=== PATIENT | female | born 1990 | race African-American/Black ===

== ENCOUNTER 2017-05-04 11:34 | Inpatient (IN) | payer MEDICAID, OTHER ==
[~2017-05-04] VITALS: Ht 167.6 cm; Wt 120.2 kg
[~2017-05-04 11:34] MED LIST: ALBUTEROL; CARVEDILOL PO; D-ME473S8; LASIX PO; LISINOPRIL PO; MAGNESIUM OXIDE PO; POTASSIUM CHLORIDE PO
[2017-05-04] MEDS ORDERED: MAGNESIUM/ALUMINUM HYDROXIDE/SIMETHICONE 30ML UDC PO STA (15:44)
[2017-05-04] MEDS ORDERED: FAMOTIDINE 20MG/2ML VIAL IV STA (15:44)
[2017-05-04] MEDS ORDERED: SODIUM CHLORIDE 0.9% 1,000 ML IV ONE (15:44)
[2017-05-04] MEDS ORDERED: ONDANSETRON HCL 4MG/2ML VIAL IV STA (15:44)
[2017-05-04] MEDS ORDERED: MORPHINE SULFATE 4 MG/ML CPJ (NOT FOR IM USE) IV STA (15:44)
[2017-05-04 16:07] LABS: CLARITY URINE CLEAR (CLEAR); COLOR URINE DARK YELLOW (YELLOW); GLUCOSE URINE NEGATIVE (NEGATIVE); KETONES URINE TRACE (NEGATIVE); LEUKOCYTE ESTERASE URINE TRACE (NEGATIVE); NITRITE URINE NEGATIVE (NEGATIVE); OCCULT BLOOD URINE NEGATIVE (NEGATIVE); PROTEIN URINE 1+ (NEGATIVE); SPECIFIC GRAVITY URINE 1.029 (1.005-1.030)
[2017-05-04 16:09] LABS: BASOPHILS % 0.3 % (0.0-2.0); HEMATOCRIT. 40.5 % (36.0-48.0); HEMOGLOBIN. 13.4 g/dL (12.0-16.0); LYMPHOCYTES % 7.5 % (20.0-50.0); MEAN CORPUSCULAR HEMOGLOBIN 29.3 pg (28.0-32.0); MEAN CORPUSCULAR VOLUME 88.3 fL (81.0-99.0); MEAN PLATELET VOLUME 8.1 fl (7.4-10.4); MONOCYTES % 4.7 % (2.0-8.0); NEUTROPHILS % 87.5 % (40.0-76.0); PLATELET 261 x1000/uL (130-400); RED BLOOD CELL COUNT 4.58 mill/uL (4.2-5.4)
[2017-05-04 16:10] LABS: CHLORIDE 103 mEq/L (98-107)
[2017-05-04 16:11] LABS: INR 1.1
[2017-05-04 16:16] LABS: CARBON DIOXIDE 27 mEq/L (21-32)
[2017-05-04] MEDS ORDERED: PIPERACILLIN/TAZ 3.375G PREMIX 50 ML IV ONE (17:00)
[2017-05-04] MEDS ORDERED: SODIUM CHLORIDE 0.9% 1,000 ML IV SCH (17:24)
[2017-05-04 17:26] LABS: CREATINE KINASE 82 IU/L (26-192); TROPONIN I < 0.02 ng/mL (0.00-0.04)
[2017-05-04 17:27] LABS: CREATINE KINASE MB FRACTION < 0.5 ng/mL (0.5-3.6)
[2017-05-04] MEDS ORDERED: IPRATROPIUM/ALBUTEROL 0.5-3(2.5)MG/3ML NEB INH PRN (17:30)
[2017-05-04] MEDS ORDERED: ONDANSETRON HCL 4MG/2ML VIAL IV PRN (17:30)
[2017-05-04 21:00] VITALS: BP 105/62
[2017-05-05] VITALS: BP 98/49
[2017-05-05] MEDS: SODIUM CHLORIDE 0.9% 1,000 ML IV SCH ×2 (01:53→23:38)
[2017-05-05] MEDS: PIPERACILLIN/TAZ 3.375G PREMIX 50 ML IV SCH ×5 (01:53→23:38)
[2017-05-05 04:00] VITALS: BP 105/56
[2017-05-05 06:58] LABS: BASOPHILS % 0.4 % (0.0-2.0); EOSINOPHILS % 0.1 % (0.0-5.0); HEMATOCRIT. 36.9 % (36.0-48.0); HEMOGLOBIN. 12.4 g/dL (12.0-16.0); LYMPHOCYTES % 26.3 % (20.0-50.0); MEAN CORPUSCULAR HEMOGLOBIN 29.5 pg (28.0-32.0); MEAN PLATELET VOLUME 8.7 fl (7.4-10.4); MONOCYTES % 8.9 % (2.0-8.0); NEUTROPHILS % 64.3 % (40.0-76.0); PLATELET 236 x1000/uL (130-400); RED BLOOD CELL COUNT 4.19 mill/uL (4.2-5.4); RED CELL DISTRIBUTION WIDTH 15.2 % (11.6-14.6)
[2017-05-05 07:49] LABS: CARBON DIOXIDE 26 mEq/L (21-32); CHLORIDE 106 mEq/L (98-107); HDL CHOLESTEROL 45 mg/dL (40-59); LDL CHOLESTEROL 86 mg/dL (5-100)
[2017-05-05 07:53] VITALS: BP 105/53
[2017-05-05] MEDS ORDERED: POTASSIUM CHLORIDE INJ 40 MEQ in DEXT 5% WATER 250 ML IV SCH (11:00)
[2017-05-05 11:45] VITALS: BP 103/62
[2017-05-05 11:53] LABS: *AMPHETAMINES SCREEN URINE NEGATIVE (NEGATIVE); *BARBITURATES SCREEN URINE NEGATIVE (NEGATIVE); *BENZODIAZEPINES SCREEN URINE NEGATIVE (NEGATIVE); *COCAINE SCREEN URINE NEGATIVE (NEGATIVE); CANNABINOID URINE SCREEN NEGATIVE (NEGATIVE); METHADONE URINE SCREEN NEGATIVE (NEGATIVE); OPIATES URINE SCREEN NEGATIVE (NEGATIVE); PHENCYCLIDINE URINE SCREEN NEGATIVE (NEGATIVE)
[2017-05-05 16:08] VITALS: BP 102/67
[2017-05-05 20:00] VITALS: BP_SYST 108; BP_SYST 114; BP_DIAS 66; BP_DIAS 71
[2017-05-06] VITALS: BP 114/71
[2017-05-06 04:00] VITALS: BP 128/58
[2017-05-06] MEDS: PIPERACILLIN/TAZ 3.375G PREMIX 50 ML IV SCH ×3 (06:15→18:24)
[2017-05-06 06:22] LABS: BASOPHILS % 0.6 % (0.0-2.0); EOSINOPHILS % 0.4 % (0.0-5.0); HEMATOCRIT. 35.8 % (36.0-48.0); HEMOGLOBIN. 12.1 g/dL (12.0-16.0); LYMPHOCYTES % 38.5 % (20.0-50.0); MEAN CORPUSCULAR HEMOGLOBIN 29.8 pg (28.0-32.0); MEAN CORPUSCULAR VOLUME 87.7 fL (81.0-99.0); MEAN PLATELET VOLUME 8.5 fl (7.4-10.4); MONOCYTES % 7.9 % (2.0-8.0); NEUTROPHILS % 52.6 % (40.0-76.0); PLATELET 227 x1000/uL (130-400); RED BLOOD CELL COUNT 4.08 mill/uL (4.2-5.4); RED CELL DISTRIBUTION WIDTH 15.3 % (11.6-14.6)
[2017-05-06 06:51] LABS: HEPATITIS B SURFACE ANTIGEN NEGATIVE
[2017-05-06 07:19] LABS: HEPATITIS B CORE AB IGM NEGATIVE
[2017-05-06 07:21] LABS: HEPATITIS A AB IGM NEGATIVE (NEGATIVE)
[2017-05-06 07:38] LABS: CHLORIDE 106 mEq/L (98-107)
[2017-05-06 07:47] LABS: AMYLASE 46 IU/L (25-115); CARBON DIOXIDE 24 mEq/L (21-32)
[2017-05-06 08:00] VITALS: BP 105/63
[2017-05-06 12:00] VITALS: BP 105/81
[2017-05-06] MEDS: SODIUM CHLORIDE 0.9% 1,000 ML IV SCH (13:05)
[2017-05-06 16:00] VITALS: BP 108/62
[2017-05-06] MEDS ORDERED: POTASSIUM CHLORIDE 20MEQ TABLET SR PO NR (16:53)
[2017-05-06 20:00] VITALS: BP 113/61
[2017-05-07] VITALS: BP 123/60
[2017-05-07] MEDS: PIPERACILLIN/TAZ 3.375G PREMIX 50 ML IV SCH ×4 (00:40→17:59)
[2017-05-07] MEDS: SODIUM CHLORIDE 0.9% 1,000 ML IV SCH ×2 (00:41→16:45)
[2017-05-07 04:00] VITALS: BP 132/75
[2017-05-07 07:23] LABS: AMYLASE 39 IU/L (25-115); CARBON DIOXIDE 26 mEq/L (21-32); CHLORIDE 107 mEq/L (98-107)
[2017-05-07 07:53] LABS: BASOPHILS % 0.4 % (0.0-2.0); EOSINOPHILS % 0.5 % (0.0-5.0); HEMATOCRIT. 34.7 % (36.0-48.0); HEMOGLOBIN. 11.7 g/dL (12.0-16.0); LYMPHOCYTES % 41.2 % (20.0-50.0); MEAN CORPUSCULAR HEMOGLOBIN 29.6 pg (28.0-32.0); MEAN CORPUSCULAR VOLUME 87.9 fL (81.0-99.0); MEAN PLATELET VOLUME 8.3 fl (7.4-10.4); MONOCYTES % 7.7 % (2.0-8.0); NEUTROPHILS % 50.2 % (40.0-76.0); PLATELET 243 x1000/uL (130-400); RED BLOOD CELL COUNT 3.95 mill/uL (4.2-5.4); RED CELL DISTRIBUTION WIDTH 15.2 % (11.6-14.6)
[2017-05-07 08:00] VITALS: BP 122/71
[2017-05-07 12:00] VITALS: BP 116/74
[2017-05-07] MEDS ORDERED: POTASSIUM CHLORIDE 20MEQ TABLET SR PO NR (13:45)
[2017-05-07 16:00] VITALS: BP 116/66
[2017-05-07 16:36] LABS: T4 FREE 1.5 ng/dL (0.76-1.46)
[2017-05-07] MEDS: CARVEDILOL 12.5MG TABLET PO SCH ×2 (16:42→21:00)
[2017-05-07] MEDS: APIXABAN 5 MG TABLET PO SCH ×2 (16:43→22:34)
[2017-05-07] MEDS: FUROSEMIDE 40MG TABLET PO SCH (16:44)
[2017-05-07] MEDS ORDERED: DIGOXIN 250MCG TABLET PO SCH (18:00)
[2017-05-07 20:00] VITALS: BP 104/68
[2017-05-08] VITALS: BP 110/70
[2017-05-08] MEDS: PIPERACILLIN/TAZ 3.375G PREMIX 50 ML IV SCH ×3 (00:54→12:03)
[2017-05-08 04:00] VITALS: BP 107/61
[2017-05-08 06:33] LABS: BASOPHILS % 0.4 % (0.0-2.0); EOSINOPHILS % 0.7 % (0.0-5.0); HEMATOCRIT. 35.2 % (36.0-48.0); HEMOGLOBIN. 11.8 g/dL (12.0-16.0); LYMPHOCYTES % 39.4 % (20.0-50.0); MEAN CORPUSCULAR HEMOGLOBIN 29.1 pg (28.0-32.0); MEAN CORPUSCULAR VOLUME 86.9 fL (81.0-99.0); MEAN PLATELET VOLUME 8.1 fl (7.4-10.4); MONOCYTES % 7.3 % (2.0-8.0); NEUTROPHILS % 52.2 % (40.0-76.0); PLATELET 233 x1000/uL (130-400); RED BLOOD CELL COUNT 4.05 mill/uL (4.2-5.4); RED CELL DISTRIBUTION WIDTH 15.2 % (11.6-14.6)
[2017-05-08 07:07] LABS: CHLORIDE 106 mEq/L (98-107)
[2017-05-08 07:18] LABS: CARBON DIOXIDE 25 mEq/L (21-32)
[2017-05-08 08:00] VITALS: BP 129/72
[2017-05-08] MEDS: CARVEDILOL 12.5MG TABLET PO SCH (08:48)
[2017-05-08] MEDS: FUROSEMIDE 40MG TABLET PO SCH (08:49)
[2017-05-08] MEDS: APIXABAN 5 MG TABLET PO SCH (08:49)
[2017-05-08] MEDS ORDERED: POTASSIUM CHLORIDE 20MEQ TABLET SR PO NR (11:45)
[2017-05-08 12:22] VITALS: BP 129/72
== END 2017-05-08 13:00 | disposition home or self-care (01) ==
LOC: ER 16:03 → 6WST 17:21 → ENRESERV 19:05
PROVIDERS: ADMIT Internal Medicine; ATTEND Internal Medicine
DX: K80.20 Calculus of gallbladder without cholecystitis without obstruction (principal); I42.0 Dilated cardiomyopathy; K85.10 Biliary acute pancreatitis without necrosis or infection; I11.0 Hypertensive heart disease with heart failure; I50.9 Heart failure, unspecified; Z68.41 Body mass index [BMI] 40.0-44.9, adult; E44.1 Mild protein-calorie malnutrition; I48.2 Chronic atrial fibrillation; N39.0 Urinary tract infection, site not specified; E87.6 Hypokalemia; E07.81 Sick-euthyroid syndrome; E03.9 Hypothyroidism, unspecified; E66.9 Obesity, unspecified; I25.10 Atherosclerotic heart disease of native coronary artery without angina pectoris; R74.0 Nonspecific elevation of levels of transaminase and lactic acid dehydrogenase [LDH]; Z79.899 Other long term (current) drug therapy
CPT/HCPCS: 36415; 74181; 76705; 80053; 80061; 80305; 81001; 82150; 82248; 82550; 82553; 83615; 83690; 83735; 83880; 84439; 84443; 84481; 84484; 85025; 85610; 86705; 86709; 86803; 87040; 87086; 87340; 93005; 93306; 93970; 96361; 96365; 96375; 96376; 99291; J2270; J2405; J2543; J3480; J3490; J7030; J7060